=== PATIENT | male | born 1990 | race Hispanic/Latino ===

== ENCOUNTER 2017-04-01 17:05 | Emergency (ER) | payer SELFPAY ==
[2017-04-01 17:22] VITALS: TEMP 98.5
[2017-04-01] MEDS: HYDROcodone 10MG/APAP 325MG 1 EA TAB PO ONE (17:40)
[2017-04-01] MEDS: TAMSULOSIN 0.4 MG CAP PO ONE (17:40)
[2017-04-01] MEDS: SODIUM CHLORIDE 0.9% 1000ML 1,000 ML IVS ONE (17:59)
--- NOTE | 2017-04-01 18:00 | ED.PDOC ---
History of Present Illness - General Chief Complaint: Problem Stated Complaint: RIGHT FLANK PAIN Time Seen by Provider: 04/01/17 17:27 Source: patient Exam Limitations: no limitations - History of Present Illness Initial Comments: [place] Cedeno 27 y/o male stated that he had right flank pain 3 days ago on and off then went away but today had another episode no nausea/vomiting no dysuria no fever no chills Timing/Duration: other - 3 days ago Severity: moderate Improving Factors: nothing Worsening Factors: nothing Associated Symptoms: denies symptoms Allergies/Adverse Reactions: Allergies NO KNOWN ALLERGY Allergy (Verified 04/01/17 17:23) Home Medications: Ambulatory Orders Acetamin W/Cod #3 Tab [Tylenol w/CODEINE #3] 1 ea PO Q4HR PRN #20 tab 04/01/17 Tamsulosin HCl [Flomax] 0.4 mg PO DAILY #7 cap 04/01/17 Review of Systems - Review of Systems Constitutional: States: no symptoms reported EENTM: States: no symptoms reported Respiratory: States: no symptoms reported Cardiology: States: no symptoms reported Gastrointestinal/Abdominal: States: see HPI Genitourinary: States: see HPI Past Medical History (General) - Patient Medical History Hx Seizures: No Hx Stroke: No Hx Asthma: No Hx of COPD: No Hx Cardiac Disorders: No Hx Congestive Heart Failure: No Hx Pacemaker: No Hx Hypertension: No Hx Thyroid Disease: No Hx Diabetes: No Hx Gastroesophageal Reflux: No Hx Renal Disease: No Surgical History: no surgical history Family Medical History - Family History Mother Hx Family Hypertension: Yes Hx Family Diabetes: Yes Physical Exam - Physical Exam General Appearance: Alert, No apparent distress Eye Exam: bilateral normal Ears, Nose, Throat: hearing grossly normal, normal ENT inspection, normal pharynx Neck: full range of motion, supple Respiratory: chest non-tender, lungs clear, normal breath sounds Cardiovascular/Chest: normal peripheral pulses, regular rate, rhythm, no murmur Peripheral Pulses: radial,right: 2+, radial,left: 2+ Gastrointestinal/Abdominal: non tender, soft, no organomegaly Back Exam: no CVA tenderness, no vertebral tenderness Neurologic: alert, normal mood/affect, oriented x 3 Progress - Progress Progress: 04/01/17 20:35 Vital Signs - 8 hr 04/01/17 04/01/17 04/01/17 17:08 18:12 19:27 Temperature 98.5 F Pulse Rate [ 94 H 63 58 L LEFT BRACHIAL] Respiratory 16 20 18 Rate Blood Pressure 148/94 147/89 126/83 [LEFT BRACHIAL] O2 Sat by Pulse 96 96 96 Oximetry 04/01/17 20:36 Laboratory Tests 04/01/17 04/01/17 04/01/17 17:51 17:51 17:51 WBC 17.8 H RBC 5.41 Hgb 16.4 Hct 48.0 MCV 88.8 MCH 30.3 MCHC 34.1 RDW 12.5 Plt Count 349 MPV 7.5 Absolute Neuts (auto) 14.00 H Absolute Lymphs (auto) 2.20 Absolute Monos (auto) 1.30 H Absolute Eos (auto) 0.20 Absolute Basos (auto) 0.10 Neutrophils % 78.8 H Lymphocytes % 12.5 L Monocytes % 7.2 Eosinophils % 1.2 Basophils % 0.3 Sodium 137 Potassium 3.9 Chloride 104 Carbon Dioxide 26 Anion Gap 10.9 L BUN 18 Creatinine 1.15 BUN/Creatinine Ratio 15.7 Random Glucose 94 Serum Osmolality 275.5 Calcium 10.2 Total Bilirubin 0.7 AST 31 ALT 37 Alkaline Phosphatase 78 Serum Total Protein 8.7 H Albumin 5.0 Globulin 3.7 H Albumin/Globulin Ratio 1.4 Urine Color Yellow Urine Appearance Sl cloudy Urine pH 5.5 Ur Specific [place] >= 1.030 Urine Protein 30 Urine Glucose (UA) Negative Urine Ketones Trace Urine Blood Large H Urine Nitrite Negative Urine Bilirubin Negative Urine Urobilinogen 0.2 Ur Leukocyte Esterase Negative Urine RBC Tntc H Urine WBC 5-10 H Ur Epithelial Cells Not Reportable Urine Bacteria 1+ Urine Mucus Moderate - EKG/XRAY/CT CT Ordered: Yes - abd/p-right distal uretero lithiasisis 5.4 mm;left nephrolithiasis Departure - Departure Clinical Impression: Ureterolithiasis, Flank pain, acute Hematuria Qualifiers: Hematuria type: unspecified type Qualified Code(s): R31.9 - Hematuria, unspecified Time of Disposition: 20:40 Disposition: Discharge to Home or Self Care Condition: Good Departure Forms: ED Discharge - Pt. Copy, Patient Portal Self Enrollment Instructions: DI for Kidney Stones, Kidney Stones -- Adult Prescriptions: Acetamin W/Cod #3 Tab [Tylenol w/CODEINE #3] 1 ea PO Q4HR PRN #20 tab PRN Reason: Pain Tamsulosin HCl [Flomax] 0.4 mg PO DAILY #7 cap Home Medications: Ambulatory Orders Acetamin W/Cod #3 Tab [Tylenol w/CODEINE #3] 1 ea PO Q4HR PRN #20 tab 04/01/17 Tamsulosin HCl [Flomax] 0.4 mg PO DAILY #7 cap 04/01/17 Additional Instructions: Return to emergency room as needed;Limit soda 1-2 cans /day or avoid it;Aleve 2 tablets 3 x a day as needed for pain with hydrocodone;Need to sign up with primary md
[2017-04-01] MEDS: KETOROLAC TROMETHAMINE INJ 30 MG/ML VIAL IV ONE (18:11)
--- NOTE | 2017-04-01 19:02 | CT ---
PROCEDURE: Abdoment/Pelvis w/o Contrast HISTORY: right flank pain Indication: Same as above Comparison: None Technique: CT of the abdomen and pelvis was done without intravenous contrast. Images were obtained from the lung base to the level of the pubic symphysis in axial plane, followed by orthogonal sagittal and coronal reconstruction. Oral contrast was not given for the study. This exam was performed according to our departmental dose-optimization program, which includes automated exposure control, adjustment of the mA and/or KV according to the patient's size and/or use of iterative reconstruction technique. FINDINGS: Images through the lung bases do not show any focal infiltrates or pleural effusions. The liver, gallbladder, pancreas, spleen and the bilateral adrenal glands appear unremarkable, given the limitation of lack of intravenous contrast. There is right-sided hydroureteronephrosis to the level of the 5.4 mm calculus seen in the distal right abdominal ureter at the level of the transverse process of L5 vertebral body. There is no right-sided nephrolithiasis. Note is made of a 4 mm calculus in the upper pole of the right kidney. There is no left-sided hydroureteronephrosis The urinary bladder is unremarkable, without any evidence of wall thickening, calculi or filling defects. The small bowel appears unremarkable, without any evidence of small bowel obstruction or bowel wall thickening. There is no CT evidence of acute appendicitis, pericecal inflammatory change or ileocecal mesenteric adenitis. The ileocecal junction appears unremarkable. There is no CT evidence of acute colonic diverticulitis or colitis or large bowel obstruction. There is no pathological lymphadenopathy in the retroperitoneum or in the pelvic region. There is no evidence of free fluid or free air in the abdomen or the pelvic region. There is no clinically significant abdominal aortic aneurysm. There is no clinically significant inguinal or ventral hernia. The visualized lumbar spine is unremarkable. The paravertebral soft tissues are unremarkable. The remainder of the pelvic structures are unremarkable. IMPRESSION: There is right-sided hydroureteronephrosis to the level of the 5.4 mm calculus seen in the distal right abdominal ureter at the level of the transverse process of L5 vertebral body. There is no right-sided nephrolithiasis. Note is made of a 4 mm calculus in the upper pole of the right kidney. There is no left-sided hydroureteronephrosis Electronically signed by: Jd Manjarrez MD 04/01/2017 7:01 PM CDT Workstation: [id number]
[2017-04-01] MEDS: LACTATED RINGERS 1,000 ML IVS ONE (19:22)
[2017-04-01] MEDS: HYDROCOD/APAP 10/325 (ER DISP) # 3 tablets PO ONE (21:12)
[2017-04-01 21:27] VITALS: BP 130/80; O2SAT 98
== END 2017-04-01 21:27 | disposition home or self-care (01) ==
LOC: ER 17:05
DX: N20.2 Calculus of kidney with calculus of ureter (principal)
CPT/HCPCS: 36415; 74176; 80053; 81001; 85025; J1885; J7030; J7120